=== PATIENT | female | born 1945 | race Caucasian/White ===

== ENCOUNTER → 2018-10-01 | Outpatient (CLI) | payer MEDICARE ==
[2016-09-09 16:02] VITALS: BMI 24.1
[~2018-10-01] MED LIST: ASPI-1471 PO; ASPI-757 PO; ATOR40TA24 PO; CHOL10005 PO; CYAN50003 PO; ESCI10TA8 PO; KRIL1CAP6 PO; LISI-362 PO; LISI5TAB25 PO; METF-450 PO; OMEG-11 PO; PER PO; [UNRECOGNIZED DRUG - CODE] PO
== END ==
LOC: US 01:38
PROVIDERS: ATTEND Family Medicine
DX: I35.0 Nonrheumatic aortic (valve) stenosis (principal)
CPT/HCPCS: 93306

== ENCOUNTER 2018-10-15 10:10 | Emergency (ER) | payer MEDICARE ==
[2016-09-09 16:02] VITALS: Wt 56.7 kg
--- NOTE | 2018-10-15 10:13 | ER Report ---
History and Physical Time Seen By MD: 10:09 HPI/ROS CHIEF COMPLAINT: Right hip and right leg pain HISTORY OF PRESENT ILLNESS: 73 year-old female with five-day history of worsening right leg pain, that radiates down the anterior thigh down to the knee and began suddenly while she was walking. The pain has waxed and waned, and has intermittently resolved completely, however, the last two days she has noted a constant 7/10 ache with occasional sharp, "lightening-bolt" sensation down the thigh, which seems to worsen with standing as well as with external rotation. She reports a fall on the right hip 4 weeks ago, but was able to ambulate and denied persistent pain afterwards. Otherwise, denies any trauma. She also reports starting Crestor 3 days prior to onset of symptoms, but discontinued this when she experienced pain and itching. She has tried Naproxen without relief. She denies any hip/thigh swelling, saddle anesthesia, back pain, urinary or bowel incontinence. Mentions recent weight loss which she attributes to increase in activity after her right knee replacement. REVIEW OF SYSTEMS: Respiratory: No cough, no dyspnea. Cardiovascular: No chest pain, no palpitations. Gastrointestinal: Admits to mild nausea, but no vomiting, no abdominal pain. Musculoskeletal: As above Allergies: Coded Allergies: Sulfa (Sulfonamide Antibiotics) (Verified Allergy, Severe, hives, difficulty breathing, swelling of throat, 09/01/16) oxycodone (Verified Allergy, Unknown, HIVES, 10/15/18) rosuvastatin (Verified Adverse Reaction, Unknown, 10/15/18) Home Meds Active Scripts Ketorolac Tromethamine (KETOROLAC TROMETHAMINE) 10 Mg Tab, 10 MG PO Q6H PRN for PAIN, #30 TAB 0 Refills Prov:ADILENE BLACKBURN MD 10/15/18 Reported Medications Cider Vinegar (APPLE CIDER VINEGAR) 300 Mg Tablet, 300 MG PO 10/15/18 Cholecalciferol (Vitamin D3) (VITAMIN D3) 1,000 Unit Tablet, 1000 UNIT PO BID, TAB 09/01/16 Cyanocobalamin (Vitamin B-12) (VITAMIN B-12) 5,000 Mcg Tab.rapdis, 5000 MCG PO BID 09/01/16 Krill/Om3/Dha/Epa/Om6/Lip/Astx (KRILL OIL 1,000 MG SOFTGEL) 1 Each Capsule, 1 EACH PO BID, CAPSULE 09/01/16 Lisinopril (LISINOPRIL) 10 Mg Tablet, 10 MG PO QDAY, TAB 09/01/16 Metformin Hcl (METFORMIN HCL) 500 Mg Tablet, 1 TAB PO BID TAKE ONE TABLET BY MOUTH TWO TIMES A DAY WITH FOOD 02/07/14 Discontinued Reported Medications Oxycodone/Acetaminophen (OXYCODONE/ACETAMINOPHEN 5MG/325 MG) 5 Mg/325 Mg Tab, 1- 2 TAB PO Q6H PRN for PAIN, #40 09/10/16 Atorvastatin Calcium (LIPITOR) 40 Mg Tablet, 1 TAB PO HS, TAB 09/01/16 Discontinued Scripts Aspirin (ASPIRIN) 325 Mg Tablet, 325 MG PO QDAY for 30 Days, Take for 30 days after surgery for blood clot prevention and then resume aspirin 81mg a day Prov:JORDIN NORMAN MD 09/10/16 Past Medical/Surgical History Past medical history of hyperlipidemia, hypertension, prediabetes. Surgical history includes right knee replacement Family history of pancreatic cancer in her mother, at age 91; her sister history of cervical cancer, at age 65. Hx Smoking: Yes (SMOKED 1 PPWEEK FROM 1970 TILL 1999. QUIT 1999.) Smoking Status: Never Smoker Hx Alcohol Use: Yes Constitutional Vital Sign - Last 24 Hours 10/15/18 10/15/18 10/15/18 10/15/18 10:15 10:30 10:45 11:00 Temp 98.4 Pulse 89 81 Resp 16 B/P (MAP) 190/91 175/88 (117) 167/75 (105) 156/72 (100) Pulse Ox 93 92 92 10/15/18 10/15/18 11:15 11:30 Pulse 81 B/P (MAP) 154/81 (105) 161/76 (104) Pulse Ox 93 Physical Exam General Appearance: The patient is alert, has no immediate need for airway protection and no signs of toxicity. Eyes: Pupils equal and round no pallor or injection. ENT, Mouth: Mucous membranes are moist. Respiratory: There are no retractions, lungs are clear to auscultation with some bowel sounds. Cardiovascular: Regular rate and rhythm with 2/6 systolic murmur. Gastrointestinal: Abdomen is soft and non tender, no masses, bowel sounds normal. Neurological: Alert and oriented, no focal neurological deficits. Muscle strength of LE 5/5 bilaterally. Patellar reflexes 2+/4 bilaterally. Sensation to light touch intact. Skin: Warm and dry, no rashes. Musculoskeletal: Extremities are nontender, nonswollen and have full range of motion, except for right lower extremity with decreased active range of motion in external rotation/abduction and flexion of hip due to pain. Negative straight leg raise bilaterally. DIFFERENTIAL DIAGNOSIS: After history and physical exam differential diagnosis was considered for lumbar radiculopathy, sartorious muscle strain, obturator hernia, possible malignancy. Medical Decision Making Data Points Result Diagram: 10/15/18 1130 Laboratory Chemistry Test 10/15/18 11:30 Sodium Level 133 mmol/L (137-145) Potassium Level 4.6 mmol/L (3.5-5.0) Chloride Level 101 mmol/L (98-107) Carbon Dioxide Level 19 mmol/L (22-31) Blood Urea Nitrogen 14 mg/dl (7-18) Creatinine 0.90 mg/dl (0.52-1.04) Glomerular Filtration Rate Calc > 60.0 Random Glucose 121 mg/dl (75-110) Calcium Level 9.0 mg/dl (8.4-10.2) Total Creatine Kinase 77 U/L (30-135) EKG/Imaging Imaging FACILITY: [facility] PATIENT NAME: Melissa Katz : 1945 MR: [id number] V: [id number] EXAM DATE: [id number] ORDERING PHYSICIAN: ADILENE BLACKBURN TECHNOLOGIST: Location[place] [facility] [place] Patient: Melissa Katz : 1945 Visit/Account:[id number] Date of Sevice: 10/15/2018 L-SPINE >4 VIEWS History: Fell on right hip one week ago. Comparison study: None. Findings: Distortion of the normal lordotic curvature of the lumbar spine is related to anterior spondylolisthesis at L5-S1 of 4 mm. It is probably related to facet degenerative changes. Discogenic degenerative changes throughout the lumbar spine are most prominent at L2-3. At this level there is also a retrospondylolisthesis of 3 mm. Any AP film there is scoliosis with the convexity pointing to the right and the apex at L2-3. The sacroiliac joints are unremarkable. There are mild findings of osteoarthrosis involving hips. There are surgical clips in right upper quadrant. IMPRESSION: 1. Anterior spondylolisthesis due to facet degenerative changes at L5-S1 of 4 mm. 2. Retrospondylolisthesis at L2-3 of 3 mm with prominent discogenic degenerative changes. 3. No vertebral body compression fracture. 4. Convexity pointing to the right. 5. Minimal findings of osteoarthrosis involving the hips. Report Dictated By: Arvin Shell MD at 10/15/2018 12:03 PM Report E-Signed By: Arvin Shell MD at 10/15/2018 12:05 PM WSN:[email or web address] FACILITY: [facility] PATIENT NAME: Melissa Katz : 1945 MR: [id number] V: [id number] EXAM DATE: ORDERING PHYSICIAN: ADILENE BLACKBURN TECHNOLOGIST: Location: [facility] [place] Patient: Melissa Katz : 1945 Visit/Account:[id number] Date of Sevice: 10/15/2018 CT LOWER EXT W/O RT HISTORY: Right hip pain TECHNIQUE: CT images were obtained through the right hip without intravenous contrast. Coronal and sagittal reformatted images were obtained from the initial data. One of the following dose optimization techniques was utilized in the performance of this exam: automated exposure control; adjustment of the mA and/or kv according to patient size; or use of iterative reconstruction technique. Specific details can be referenced in the facility's radiology CT exam operational policy. CONTRAST: None COMPARISON: None. FINDINGS: Right hip: No acute fracture or dislocation. Tiny acetabular osteophytes. No evidence of AVN. No joint effusion No loose body. Other bony structures: No acute fracture. Pubic symphysis and SI joints: Normal Soft tissues: Normal Intrapelvic and lower abdominal findings: None significant Visualized spine: Mild degenerative disc disease at L4-L5. Mild facet proliferation from L4-S1. Other findings: None significant IMPRESSION: 1. Mild degenerative changes at the right hip. No acute osseous abnormality. 2. Mild degenerative changes within the lower lumbar spine. Report Dictated By: Lyndon Crystal MD at 10/15/2018 12:00 PM Report E-Signed By: Lyndon Crystal MD at 10/15/2018 12:04 PM WSN:[email or web address] ED Course/Re-evaluation ED Course 10/15/2018 12:09:17 pm Discussed possible differentials with patient and analgesic options. She agreed to have toradol. Have ordered lumbar x-ray. Given recent use of Crestor, also ordered CPK and BMP. Discussed obturator hernia, and will order CT scan to evaluate for this as well. Decision to Disposition Date: Oct 15, 2018 Decision to Disposition Time: 12:18 Depart Departure Latest Vital Signs Vital Signs Date Time Temp Pulse Resp B/P (MAP) Pulse Ox O2 Delivery O2 Flow Rate FiO2 10/15/18 11:30 81 161/76 (104) 93 10/15/18 10:15 98.4 16 Impression: Primary Impression: Radicular leg pain Condition: Improved Disposition: HOME OR SELF-CARE Referrals: KYLEIGH JON MD (PCP) DENAE MICHAEL MD 2 Weeks schedule an appointment within the next two-four weeks for evaluation of your leg pain New Scripts Ketorolac Tromethamine (KETOROLAC TROMETHAMINE) 10 Mg Tab 10 MG PO Q6H PRN for PAIN, #30 TAB 0 Refills Prov: ADILENE BLACKBURN MD 10/15/18 Patient Instructions: Lumbar Radiculopathy (GEN) ADILENE BLACKBURN MD Oct 15, 2018 10:13
[2018-10-15] MEDS ORDERED: CIDE300T4 PO (10:23)
[2018-10-15] MEDS ORDERED: KETOROLAC 15 MG/ML VIAL IVP ONE (11:15)
--- NOTE | 2018-10-15 12:11 | RADIOLOGY IMAGING REPORT ---
FACILITY: [facility] - [place] PATIENT NAME: Melissa Katz : 1945 MR: [id number] V: [id number] EXAM DATE: ORDERING PHYSICIAN: ADILENE BLACKBURN TECHNOLOGIST: Location: [facility] Patient: Melissa Katz : 1945 Visit/Account:[id number] Date of Sevice: 10/15/2018 CT LOWER EXT W/O RT HISTORY: Right hip pain TECHNIQUE: CT images were obtained through the right hip without intravenous contrast. Coronal and s agittal reformatted images were obtained from the initial data. One of the following dose optimizatio n techniques was utilized in the performance of this exam: automated exposure control; adjustment of the mA and/or kv according to patient size; or use of iterative reconstruction technique. Specific de tails can be referenced in the facility's radiology CT exam operational policy. CONTRAST: None COMPARISON: None. FINDINGS: Right hip: No acute fracture or dislocation. Tiny acetabular osteophytes. No evidence of AVN. No join t effusion No loose body. Other bony structures: No acute fracture. Pubic symphysis and SI joints: Normal Soft tissues: Normal Intrapelvic and lower abdominal findings: None significant Visualized spine: Mild degenerative disc disease at L4-L5. Mild facet proliferation from L4-S1. Other findings: None significant IMPRESSION: 1. Mild degenerative changes at the right hip. No acute osseous abnormality. 2. Mild degenerative changes within the lower lumbar spine. Report Dictated By: Lyndon Crystal MD at 10/15/2018 12:00 PM Report E-Signed By: Lyndon Crystal MD at 10/15/2018 12:04 PM WSN:[email or web address]
--- NOTE | 2018-10-15 12:14 | RADIOLOGY IMAGING REPORT ---
FACILITY: [facility] - [place], [place] PATIENT NAME: Melissa Katz : 1945 MR: [id number] V: [id number] EXAM DATE: ORDERING PHYSICIAN: ADILENE BLACKBURN TECHNOLOGIST: Location: [facility] - [place] Patient: Melissa Katz : 1945 Visit/Account:[id number] Date of Sevice: 10/15/2018 L-SPINE >4 VIEWS History: Fell on right hip one week ago. Comparison study: None. Findings: Distortion of the normal lordotic curvature of the lumbar spine is related to anterior spo ndylolisthesis at L5-S1 of 4 mm. It is probably related to facet degenerative changes. Discogenic degenerative changes throughout the lumbar spine are most prominent at L2-3. At this leve l there is also a retrospondylolisthesis of 3 mm. Any AP film there is scoliosis with the convexity pointing to the right and the apex at L2-3. The sacroiliac joints are unremarkable. There are mild findings of osteoarthrosis involving hips. There are surgical clips in right upper quadrant. IMPRESSION: 1. Anterior spondylolisthesis due to facet degenerative changes at L5-S1 of 4 mm. 2. Retrospondylolisthesis at L2-3 of 3 mm with prominent discogenic degenerative changes. 3. No vertebral body compression fracture. 4. Convexity pointing to the right. 5. Minimal findings of osteoarthrosis involving the hips. Report Dictated By: Arvin Shell MD at 10/15/2018 12:03 PM Report E-Signed By: Arvin Shell MD at 10/15/2018 12:05 PM WSN:[email or web address]
[2018-10-15 12:15] VITALS: BP 159/83
[2018-10-15] MEDS ORDERED: KET10 PO (12:23)
== END 2018-10-15 12:30 | disposition home or self-care (01) ==
LOC: ER 10:15
DX: M79.604 Pain in right leg (principal); M54.10 Radiculopathy, site unspecified
CPT/HCPCS: 72120; 73700; 82550; 96374; 99284; J1885; 82310; 82374; 82435; 82565; 82947; 84132; 84295; 84520